=== PATIENT | female | born 1980 | race Caucasian/White ===

== ENCOUNTER 2019-04-21 13:35 | Emergency (ER) | payer MEDICAID ==
[~2019-04-21] VITALS: Ht 154.9 cm; Wt 77.0 kg
[2019-04-21 14:31] LABS: BASOPHILS % 0.5 % (0.0-2.0); EOSINOPHILS % 2.7 % (0.0-5.0); HEMATOCRIT. 33.5 % (36.0-48.0); HEMOGLOBIN. 10.5 g/dL (12.0-16.0); LYMPHOCYTES % 30.8 % (20.0-50.0); MEAN CORPUSCULAR HEMOGLOBIN 20.9 pg (28.0-32.0); MEAN CORPUSCULAR VOLUME 66.5 fL (81.0-99.0); MEAN PLATELET VOLUME 8.2 fl (7.4-10.4); MONOCYTES % 5.8 % (2.0-8.0); NEUTROPHILS % 60.2 % (40.0-76.0); PLATELET 301 x1000/uL (130-400); RED BLOOD CELL COUNT 5.03 mill/uL (4.2-5.4); RED CELL DISTRIBUTION WIDTH 19.1 % (11.6-14.6)
[2019-04-21] MEDS: ONDANSETRON HCL 4MG/2ML INJ IV STA (14:41)
[2019-04-21] MEDS: SODIUM CHLORIDE 0.9% 1,000 ML IV ONE (14:41)
[2019-04-21 14:44] LABS: HCG SCREEN NEGATIVE
[2019-04-21 14:53] LABS: PLATELET ESTIMATE NORMAL
[2019-04-21 14:59] LABS: CHLORIDE 102 mEq/L (98-107)
[2019-04-21 15:08] LABS: CLARITY URINE TURBID (CLEAR); COLOR URINE BLOODY (YELLOW); KETONES URINE NEGATIVE (NEGATIVE); LEUKOCYTE ESTERASE URINE 1+ (NEGATIVE); NITRITE URINE POSITIVE (NEGATIVE); OCCULT BLOOD URINE 3+ (NEGATIVE); PROTEIN URINE 3+ (NEGATIVE); SPECIFIC GRAVITY URINE 1.021 (1.005-1.030); UROBILINOGEN URINE 0.2 E.U./dL (0.2-1.0)
[2019-04-21] MEDS: CEFTRIAXONE 1 G PREMIX 50 ML IV ONE (15:54)
[2019-04-21 17:54] VITALS: BP 122/87
== END 2019-04-21 18:01 | disposition left against medical advice (07) ==
LOC: ER 13:50 → EDBEDREQ 15:28 → CANRESERV 16:43 → ENRESERV 16:43 → CANBEDREQ 17:59 → ER 18:01
DX: R55 Syncope and collapse (principal); N39.0 Urinary tract infection, site not specified; E86.0 Dehydration; E11.9 Type 2 diabetes mellitus without complications; I10 Essential (primary) hypertension; E03.9 Hypothyroidism, unspecified; D64.9 Anemia, unspecified
CPT/HCPCS: 36415; 71045; 80053; 81003; 81025; 83880; 84484; 84703; 85025; 87077; 87086; 87186; 87804; 93005; 96361; 96365; 96375; 99284; J0696; J2405; J7030; Z7610

== ENCOUNTER 2020-10-28 00:23 | Emergency (ER) | payer MEDICAID, OTHER ==
[~2020-10-28] VITALS: Ht 157.5 cm; Wt 73.0 kg
[2020-10-28 01:20] LABS: BASOPHILS % 0.7 % (0.0-2.0); EOSINOPHILS % 2.3 % (0.0-5.0); HEMATOCRIT. 35.4 % (36.0-48.0); HEMOGLOBIN. 11.5 g/dL (12.0-16.0); LYMPHOCYTES % 32.4 % (20.0-50.0); MEAN CORPUSCULAR HEMOGLOBIN 24.1 pg (28.0-32.0); MEAN CORPUSCULAR VOLUME 73.9 fL (81.0-99.0); MONOCYTES % 4.7 % (2.0-8.0); NEUTROPHILS % 59.9 % (40.0-76.0); PLATELET 315 x1000/uL (130-400); RED BLOOD CELL COUNT 4.79 mill/uL (4.2-5.4); RED CELL DISTRIBUTION WIDTH 19.6 % (11.6-14.6)
[2020-10-28 01:27] LABS: CHLORIDE 104 mEq/L (98-107)
[2020-10-28 01:46] LABS: HCG SCREEN NEGATIVE
[2020-10-28 03:07] VITALS: BP 135/93
== END 2020-10-28 03:05 | disposition home or self-care (01) ==
LOC: ER 00:23
DX: R42 Dizziness and giddiness (principal); E11.9 Type 2 diabetes mellitus without complications; I10 Essential (primary) hypertension
CPT/HCPCS: 36415; 80053; 82962; 84703; 85025; 93005; 99284

== ENCOUNTER 2020-11-03 22:06 | Emergency (ER) | payer MEDICAID, OTHER ==
[~2020-11-03] VITALS: Ht 157.5 cm; Wt 78.0 kg
[2020-11-04 00:49] LABS: BASOPHILS % 0.6 % (0.0-2.0); EOSINOPHILS % 1.6 % (0.0-5.0); HEMATOCRIT. 33.8 % (36.0-48.0); HEMOGLOBIN. 11.2 g/dL (12.0-16.0); LYMPHOCYTES % 33.6 % (20.0-50.0); MEAN CORPUSCULAR HEMOGLOBIN 24.5 pg (28.0-32.0); MEAN CORPUSCULAR VOLUME 73.8 fL (81.0-99.0); MEAN PLATELET VOLUME 8.2 fl (7.4-10.4); MONOCYTES % 7.6 % (2.0-8.0); NEUTROPHILS % 56.6 % (40.0-76.0); PLATELET 347 x1000/uL (130-400); RED BLOOD CELL COUNT 4.58 mill/uL (4.2-5.4); RED CELL DISTRIBUTION WIDTH 19.8 % (11.6-14.6)
[2020-11-04 00:55] LABS: CHLORIDE 102 mEq/L (98-107)
[2020-11-04] MEDS ORDERED: IBUPROFEN 600MG TABLET PO ONE (01:30)
[2020-11-04] MEDS ORDERED: IPRATROPIUM/ALBUTEROL 0.5-3(2.5)MG/3ML NEB HHN ONE (01:30)
[2020-11-04 01:33] VITALS: BP 148/99
[2020-11-04] MEDS ORDERED: ALBU90AE INH (02:16)
== END 2020-11-04 02:43 | disposition home or self-care (01) ==
LOC: ER 22:06
DX: J06.9 Acute upper respiratory infection, unspecified (principal); E11.9 Type 2 diabetes mellitus without complications; I10 Essential (primary) hypertension; E03.9 Hypothyroidism, unspecified; Z86.19 Personal history of other infectious and parasitic diseases; Z98.890 Other specified postprocedural states
CPT/HCPCS: 36415; 71045; 80048; 81025; 83880; 84484; 85025; 94640; 99284; Z7610

== ENCOUNTER 2021-07-19 11:24 | Emergency (ER) | payer MEDICAID ==
[~2021-07-19] VITALS: Ht 157.5 cm; Wt 79.0 kg
[~2021-07-19 11:24] MED LIST: ALBU90AE INH
[2021-07-19 13:31] LABS: BASOPHILS % 0.4 % (0.0-2.0); EOSINOPHILS % 2.4 % (0.0-5.0); HEMATOCRIT. 42.2 % (36.0-48.0); LYMPHOCYTES % 16.4 % (20.0-50.0); MEAN CORPUSCULAR HEMOGLOBIN 25.5 pg (28.0-32.0); MEAN PLATELET VOLUME 8.1 fl (7.4-10.4); MONOCYTES % 5.8 % (2.0-8.0); PLATELET 317 x1000/uL (130-400); RED BLOOD CELL COUNT 5.48 mill/uL (4.2-5.4); RED CELL DISTRIBUTION WIDTH 20.3 % (11.6-14.6)
[2021-07-19 13:36] LABS: CHLORIDE 104 mEq/L (98-107)
[2021-07-19] MEDS ORDERED: ONDANSETRON HCL 4MG/2ML INJ IV STA (15:23)
[2021-07-19] MEDS ORDERED: KETOROLAC 30MG/ML VIAL IV STA (15:23)
[2021-07-19] MEDS ORDERED: KETOROLAC 30MG/ML VIAL IM ONE (15:30)
[2021-07-19] MEDS ORDERED: SODIUM CHLORIDE 0.9% 1,000 ML IV ONE (15:30)
[2021-07-19 16:50] LABS: CLARITY URINE TURBID (CLEAR); COLOR URINE ORANGE (YELLOW); KETONES URINE TRACE (NEGATIVE); LEUKOCYTE ESTERASE URINE 1+ (NEGATIVE); NITRITE URINE NEGATIVE (NEGATIVE); OCCULT BLOOD URINE NEGATIVE (NEGATIVE); PROTEIN URINE 1+ (NEGATIVE)
[2021-07-19] MEDS ORDERED: NITR-87 MT (17:37)
[2021-07-19] MEDS ORDERED: PHEN-815 MT (17:38)
[2021-07-19] MEDS ORDERED: PHENAZOPYRIDINE HCL 100MG TABLET PO ONE (17:45)
[2021-07-19] MEDS ORDERED: ONDA4TAB5 MT (18:03)
[2021-07-19] MEDS ORDERED: ONDANSETRON 4MG ODT PO STA (18:06)
[2021-07-19 18:12] VITALS: BP 116/80
== END 2021-07-19 18:19 | disposition home or self-care (01) ==
LOC: ER 11:57
DX: N39.0 Urinary tract infection, site not specified (principal); I10 Essential (primary) hypertension; E11.9 Type 2 diabetes mellitus without complications; E03.9 Hypothyroidism, unspecified; Z98.890 Other specified postprocedural states
CPT/HCPCS: 36415; 80053; 81003; 81025; 83690; 85025; 93005; 96361; 96374; 96375; 99284; J1885; J2405; J7030; Q0162